=== PATIENT | female | born 1960 | race Caucasian/White ===

== ENCOUNTER 2017-06-18 10:40 | Emergency (ER) | payer SELFPAY ==
[2017-06-18 10:48] VITALS: BMI 24.7
--- NOTE | 2017-06-18 14:25 | PDOC ---
History of Present Illness - General Chief Complaint: Syncope/Near Syncope Stated Complaint: DIZZINESS Time Seen by Provider: 06/18/17 13:53 Past History - Past Medical History Allergies/Adverse Reactions: Allergies Allergy/AdvReac Type Severity Reaction Status Date / Time amoxicillin Allergy Verified 06/18/17 10:48 Hypercholesterolemia: Yes - Surgical History Abdominal Surgery: (fibroid tumor removed) - Psycho/Social/Smoking Cessation Hx Suicidal Ideation: No Smoking History: Former smoker Have you smoked in the past 12 months: No Information on smoking cessation initiated: No Hx Alcohol Use: No Drug/Substance Use Hx: No Substance Use Type: None *Physical Exam - Vital Signs Last Vital Signs Temp Pulse Resp BP Pulse Ox 97.7 F 79 17 111/82 97 06/18/17 10:43 06/18/17 10:43 06/18/17 10:43 06/18/17 10:43 06/18/17 10:43 ED Treatment Course - LABORATORY CBC & Chemistry Diagram: 06/18/17 15:51 06/18/17 15:51 *DC/Admit/Observation/Transfer Diagnosis at time of Disposition: Sinus headache - Discharge Dispostion Disposition: HOME Condition at time of disposition: Improved Admit: No - Referrals Referrals: Eugenia Montgomery [Staff Physician] - - Patient Instructions Printed Discharge Instructions: DI for Sinus Headache Additional Instructions: Your testing today was negative. Your CT scan was normal. Your chest x-ray showed no evidence of pneumonia. Drink plenty of fluids and get plenty of rest. Take 800mg ibuprofen 3 times a day for one week. Use the flonase twice a day for one week. Follow up with Dr. Eugenia Montgomery within one week. Return to the ED if your symptoms get worse, if you faint, develop fevers or chills, if the pressure gets worse, or if you have any changes in your symptoms
[2017-06-18] MEDS ORDERED: SODIUM CHLORIDE 1,000 ML IV STA (14:27)
[2017-06-18] MEDS ORDERED: KETOROLAC TROMETHAMINE 30 MG/1 ML VIAL IVPUSH ONE (14:27)
[2017-06-18 15:58] LABS: BASOPHIL 0.9 % (0-2.0); EOSINOPHIL 0.5 % (0-4.5); MCH 30.7 pg (25.7-33.7); MCHC 33.3 g/dl (32.0-36.0); MEAN CELL VOLUME 92.2 fl (80-96); MEAN PLT VOLUME 9.5 fl (7.5-11.1); NEUTROPHILS 68.1 % (42.8-82.8); PLATELET COUNT 214 K/MM3 (134-434); RDW 12.8 % (11.6-15.6); WHITE BLOOD COUNT 7.6 K/mm3 (4.0-10.0)
[2017-06-18] MEDS ORDERED: KETOROLAC TROMETHAMINE 30 MG/1 ML VIAL ONE (15:59)
[2017-06-18 16:12] LABS: URINE APPEARANCE CLEAR; URINE BILIRUBIN NEGATIVE (NEGATIVE); URINE BLOOD 1+ (NEGATIVE); URINE COLOR STRAW; URINE GLUCOSE (UA) NEGATIVE (NEGATIVE); URINE KETONE NEGATIVE (NEGATIVE); URINE LEUK ESTERASE NEGATIVE (NEGATIVE); URINE NITRITE NEGATIVE (NEGATIVE); URINE PROTEIN NEGATIVE (NEGATIVE); URINE UROBILINOGEN NEGATIVE mg/dL (0.2-1.0)
[2017-06-18 16:18] LABS: URINE RBC <1 /hpf (0-3); URINE WBC <1 /hpf (3-5)
[2017-06-18 16:33] LABS: ALBUMIN 4.4 g/dl (3.4-5.0); ALK PHOS 150 U/L (45-117); ANION GAP 8 (8-16); BILIRUBIN,TOTAL 0.5 mg/dL (0.2-1.0); CALCIUM 9.6 mg/dL (8.5-10.1); CO2 30 mmol/L (21-32); CPK 91 IU/L (26-192); CREATININE 0.8 mg/dL (0.55-1.02); GLUCOSE,RANDOM 88 mg/dL (74-106); SGOT/AST 13 U/L (15-37); SGPT/ALT 25 U/L (12-78); TOT PROT 8.7 g/dl (6.4-8.2); TROPONIN I < 0.02 ng/ml (0.00-0.05)
[2017-06-18 16:41] LABS: INR 1.08 (0.82-1.09); PROTHROMBIN TIME (PATIENT) 11.9 SEC (9.98-11.88)
[2017-06-18] MEDS ORDERED: METOCLOPRAMIDE HCL INJECTION 10 MG/2 ML VIAL IVPB ONE (18:19)
[2017-06-18] MEDS ORDERED: METOCLOPRAMIDE HCL INJECTION 10 MG/2 ML VIAL ONE (18:33)
[2017-06-18] MEDS ORDERED: BACITRACIN 0.9 GM PACKET ONE (18:34)
[2017-06-18 19:50] VITALS: BP 119/75; PULSE 75; TEMP 98.3
--- NOTE | 2017-06-19 12:35 | EKG ---
Test Reason : Blood Pressure : / mmHG Vent. Rate : 071 BPM Atrial Rate : 071 BPM P-R Int : 142 ms QRS Dur : 092 ms QT Int : 422 ms P-R-T Axes : 042 -43 031 degrees QTc Int : 458 ms NORMAL SINUS RHYTHM LEFT AXIS DEVIATION INCOMPLETE RIGHT BUNDLE BRANCH BLOCK NONSPECIFIC T WAVE ABNORMALITY ABNORMAL ECG NO PREVIOUS ECGS AVAILABLE Confirmed by MARLI MUSTAFA MD ([id number]) on 06/19/2017 12:34:54 PM Referred By: Confirmed By:MARLI MUSTAFA MD
== END 2017-06-18 18:55 | disposition home or self-care (01) ==
LOC: JER 10:40
PROC: 3E033GC Introduction of Other Therapeutic Substance into Peripheral Vein, Percutaneous Approach (ICD-10-PCS; principal; 2017-06-18)
PROC: 3E0333Z Introduction of Anti-inflammatory into Peripheral Vein, Percutaneous Approach (ICD-10-PCS; 2017-06-18)
PROC: 3E0337Z Introduction of Electrolytic and Water Balance Substance into Peripheral Vein, Percutaneous Approach (ICD-10-PCS; 2017-06-18)
DX: G44.89 Other headache syndrome (principal); Z87.891 Personal history of nicotine dependence
CPT/HCPCS: 36415; 70450-TC; 71020-TC; 80053; 81003; 81015; 84484; 85025; 85610; 93005; 93010; 99284-25